=== PATIENT | female | born 1985 | race Caucasian/White ===

== ENCOUNTER 2017-02-05 17:39 | Emergency (ER) | payer OTHER ==
[~2017-02-05] VITALS: Ht 149.9 cm; Wt 54.4 kg
[~2017-02-05 17:39] MED LIST: AUGMENTIN PO; DOXYCYCLINE PO; FLEXERIL10 MG PO; HYDROCODON-ACE1 EAC7 PO; KEFLEX PO; LIDOCAINE VISCOU1 ML EXT; MOBIC PO; NAPROSYN500 MG PO; NAPROXEN PO; ORUDIS75 M1 DOB; PHENERGAN25 M1 PO; PRENATAL MULTIVITAMIN PO; PRENATAL1 TA1; TORADOL10 MG PO; TYLENOL #3 PO; ULTRAM PO; VOLTAREN50 MG PO; VOLTAREN75 MG PO; ZOFRAN ODT4 MG PO; ZOLOFT PO; [UNRECOGNIZED DRUG - REMARK]
== END 2017-02-05 20:20 | disposition home or self-care (01) ==
LOC: CED 17:39 → CFTX 17:39
DX: J02.9 Acute pharyngitis, unspecified (principal); H10.9 Unspecified conjunctivitis; R03.0 Elevated blood-pressure reading, without diagnosis of hypertension; F32.9 Major depressive disorder, single episode, unspecified; K58.9 Irritable bowel syndrome, unspecified; G43.909 Migraine, unspecified, not intractable, without status migrainosus
CPT/HCPCS: 87651; 99283